=== PATIENT | female | born 1990 | race Two or more races ===

== ENCOUNTER 2022-06-22 13:30 | Emergency (ER) | payer OTHER ==
[~2022-06-22] VITALS: Ht 165.1 cm; Wt 90.7 kg
[2022-06-22] MEDS ORDERED: XANAX1 MG PO (13:45)
[2022-06-22] MEDS ORDERED: NORFLEX100MG PO (13:45)
== END 2022-06-22 15:55 | disposition home or self-care (01) ==
LOC: ER 13:30
DX: N93.9 Abnormal uterine and vaginal bleeding, unspecified (principal); Z91.018 Allergy to other foods; Z91.013 Allergy to seafood

== ENCOUNTER 2022-09-10 07:54 | Day surgery (SDC) | payer OTHER ==
[~2022-09-10] VITALS: Ht 165.1 cm; Wt 98.4 kg
[~2022-09-10 07:54] MED LIST: NORFLEX100MG PO; PRILOSEC OTC20 MG PO; XANAX1 MG PO
== END 2022-09-10 16:35 | disposition home or self-care (01) ==
LOC: CIR.AMB 07:54
PROVIDERS: ATTEND Obstetrics & Gynecology
DX: N93.9 Abnormal uterine and vaginal bleeding, unspecified (principal); N84.0 Polyp of corpus uteri; E78.5 Hyperlipidemia, unspecified; Z91.041 Radiographic dye allergy status; Z91.013 Allergy to seafood; Z91.018 Allergy to other foods; Z86.16 Personal history of COVID-19